=== PATIENT | female | born 1990 | race Caucasian/White ===

== ENCOUNTER 2023-01-05 12:32 | Outpatient (CLI) | payer MEDICAID ==
[2023-01-05] VITALS (18 sets, daily range): BP systolic 115–171; BP diastolic 63–144
== END 2023-01-05 23:59 | disposition home or self-care (01) ==
LOC: CARD DIAG 12:32
PROVIDERS: ATTEND Physician Assistant Medical
DX: R07.9 Chest pain, unspecified (principal)
CPT/HCPCS: 93660